=== PATIENT | female | born 1940 | race Caucasian/White ===

== ENCOUNTER 2016-11-16 09:15 | Inpatient (IN) | payer OTHER ==
[2016-11-08 14:01] VITALS: BMI 25.0
--- NOTE | 2016-11-08 14:37 | PAT Medication Instructions ---
Service Date Nov 08, 2016. Current Home Medication List Amoxicillin (Amoxil), 4 TAB PO BEFORE DENTAL Aspirin Effervescent ([place]), 1 TAB PO UD PRN for COLD SYMPTOMS Celecoxib (Celebrex), 1 CAP PO BID Chlorhexidine Gluconate (Peridex Oral Soln), 5 ML MT BID Ezetimibe (Zetia), 10 MG PO QAM Levothyroxine Sodium (Levothyroxine Sodium), 1 TAB PO QAM Losartan Potassium (Cozaar), 100 MG PO QAM Oxycodone Ir (Roxicodone Ir), 1 TAB PO BID Spironolactone (Aldactone), 3 TAB PO TID Valacyclovir (Valtrex), 1 TAB PO BID PRN for COLD SORE Medication Instructions For Your Scheduled Surgery Amoxicillin (Amoxil), 4 TAB PO BEFORE DENTAL (continue as directed) Celecoxib (Celebrex), 1 CAP PO BID (check with surgeon for instructions) - Hold the following medications the morning of surgery: Valacyclovir (Valtrex), 1 TAB PO BID PRN for COLD SORE Spironolactone (Aldactone), 3 TAB PO TID Losartan Potassium (Cozaar), 100 MG PO QAM Chlorhexidine Gluconate (Peridex Oral Soln), 5 ML MT BID. Aspirin Effervescent ([place]), 1 TAB PO UD PRN for COLD SYMPTOMS - Take the following medications the morning of surgery with a sip of water: Oxycodone Ir (Roxicodone Ir), 1 TAB PO BID Levothyroxine Sodium (Levothyroxine Sodium), 1 TAB PO QAM Ezetimibe (Zetia), 10 MG PO QAM - Take the following medications as scheduled the night before surgery: Valacyclovir (Valtrex), 1 TAB PO BID PRN for COLD SORE (if needed) Oxycodone Ir (Roxicodone Ir), 1 TAB PO BID Spironolactone (Aldactone), 3 TAB PO TID Chlorhexidine Gluconate (Peridex Oral Soln), 5 ML MT BID Aspirin Effervescent ([place]a-[place]), 1 TAB PO UD PRN for COLD SYMPTOMS (if needed) If you have any questions please call us at [phone] or [phone] or [phone]
--- NOTE | 2016-11-08 15:44 | DIAGNOSTIC IMAGING REPORT ---
CERVICAL SPINE 2 OR 3 VIEWS CLINICAL HISTORY: 76 years-old Female presenting with PREOP, RHEUMATOID ARTHRITIS. TECHNIQUE: Lateral radiographs of the cervical spine were obtained in neutral, flexion, extension positioning. COMPARISON: None. FINDINGS: The C7 vertebral body is visible in all positions. Neutral positioning demonstrates degenerative changes of the mid cervical spine. Mild vertebral body height loss of C5-6 suggested. 3 mm of grade 1 anterolisthesis of C6 on C7. Facet arthropathy noted. The atlantoaxial articulation is not well-defined likely due to arthritic changes. No increase in the predental interval on flexion or extension. No subluxation on extension or flexion views. No prevertebral soft tissue swelling. IMPRESSION: 1. Arthritic changes suggested at the atlantoaxial articulation, which can be seen in the setting of rheumatoid arthritis among other etiologies including calcium prior phosphate deposition disease. No atlantoaxial or suboccipital subluxation. 2. Multilevel degenerative changes. Electronically signed by: Germán Mendez M.D. 11/08/2016 3:42 PM Dictated Date/Time: 11/08/2016 3:36 PM
[2016-11-08 16:20] LABS: BASO % 0.6 %; BASO ABS # 0.05 K/uL (0-0.2); COMPLETE YES; EOS % 2.9 %; HEMATOCRIT 38.1 % (37-47); IG% 0.2 %; LYMPH % 17.3 %; LYMPH ABS # 1.52 K/uL (1.2-3.4); MEAN CELL VOLUME 90.5 fL (80-100); MEAN CORPUSCULAR HEMOGLOBIN 30.4 pg (25-34); MEAN CORPUSCULAR HGB CONC 33.6 g/dl (32-36); MEAN PLATELET VOLUME 10.7 fL (7.4-10.4); MONO % 8.4 %; NEUT % 70.6 %; PLATELET COUNT 251 K/uL (130-400); RED BLOOD COUNT 4.21 M/uL (4.2-5.4); WHITE BLOOD COUNT 8.77 K/uL (4.8-10.8)
[2016-11-08 16:20] LABS: URINE APPEARANCE CLEAR (CLEAR); URINE BILIRUBIN NEG (NEG); URINE COLOR YELLOW; URINE EPITHELIAL CELL AUTO 0-5 /lpf (0-5); URINE NITRITE POS (NEG); URINE SPECIFIC GRAVITY 1.007 (1.000-1.030); UROBILINOGEN NEG (NEG); ZZUR CULT IF INDIC CLEAN CATCH YES
[2016-11-08 16:21] LABS: MANUAL MICROSCOPIC REQUIRED? NO; REVIEW REQ? NO
[2016-11-08 16:31] LABS: INR 0.9 (0.9-1.1); PROTHROMBIN TIME (PATIENT) 10.1 SECONDS (9.0-12.0)
[2016-11-09 06:51] LABS: ESTIMATED AVERAGE GLUCOSE 114 mg/dl; HA1C FLAG Normal (Normal)
--- NOTE | 2016-11-15 14:22 | History and Physical ---
History & Physical Date Nov 15, 2016. Chief Complaint Right hip pain History of Present Illness The patient is a 76 year old female with complaints of severe right hip pain and disability. She had previous hip fracture and gamma nailing by outside physician. Xrays shows disintegration of the femoral head, severe shortening of the hip joint, and lag screw penetration into the acetabulum Additional History Hepatic Disease: No Endocrine Disorder: Yes (Hypothyroidism) Kidney Disease: No Hypertension: Yes Heart Disease: No Bleeding Tendencies: No Infectious Diseases: No Other: Hypercholesterolemia Allergies Coded Allergies: Clarithromycin (Verified Allergy, Unknown, pt unsure, 11/08/16) Hydroxychloroquine (Verified Allergy, Unknown, ELECTROLYTE IMBALANCE, 11/08) Latex1 -Allergic Contact Dermititis (Verified Allergy, Unknown, SKIN REDNESS, 11/08/16) Atorvastatin (Verified Adverse Reaction, Unknown, MUSCLE SPASMS, 11/08/16) Clindamycin (Verified Adverse Reaction, Unknown, diarrhea, 11/08/16) Levofloxacin (Verified Adverse Reaction, Unknown, nausea, 11/08/16) Methotrexate (Verified Adverse Reaction, Unknown, ACUTE RENAL FAILURE, 04/15) Naproxen (Verified Adverse Reaction, Unknown, N/V, 11/08/16) Home Medications Scheduled Amoxicillin (Amoxil), 4 TAB PO BEFORE DENTAL Cefuroxime Axetil (Ceftin), 500 MG PO BID Celecoxib (Celebrex), 1 CAP PO BID Chlorhexidine Gluconate (Peridex Oral Soln), 5 ML MT BID Ezetimibe (Zetia), 10 MG PO QAM Levothyroxine Sodium (Levothyroxine Sodium), 1 TAB PO QAM Losartan Potassium (Cozaar), 100 MG PO QAM Oxycodone Ir (Roxicodone Ir), 1 TAB PO BID Scheduled PRN Aspirin Effervescent (Siena-[place]), 1 TAB PO UD PRN for COLD SYMPTOMS Valacyclovir (Valtrex), 1 TAB PO BID PRN for COLD SORE Physical Examination Skin: warm/dry Eyes: normal inspection, EOMI ENT: normal ENT inspection Head: normocephalic Neck: supple, no adenopathy Respiratory/Chest: lungs clear, normal breath sounds Cardiovascular: regular rate, rhythm Abdomen / GI: normal bowel sounds Back: normal inspection Extremities: + pertinent finding (Right hip with decreased active and passive ROM with pain. Right lower extremity notably shortened) Addiitonal Comments: Xrays: right hip gamma nail in place with disintegration of femoral head, lag screw erosion into acetabulum, and severe hip shortening Diagnosis Painful retained hardware right hip Plan of Treatment Removal gamma nail, conversion to right total hip arthroplasty
[2016-11-16] VITALS (8 sets, daily range): BP systolic 101–134; BP diastolic 63–82; PULSE 66–73; TEMP 36.3–36.9; O2SAT 97–100; Ht 157.5 cm; Wt 138.0 kg
[~2016-11-16] VITALS: Ht 157.5 cm; Wt 138.0 kg
[2016-11-16] MEDS: TRANEXAMIC ACID INJ 1,000 MG in SODIUM CHLORIDE 0.9% 100ML 100 ML IV SCH ×2 (06:30→12:15)
[~2016-11-16 09:15] MED LIST: ACETAMINOPHEN 500 MG TAB PO SCH; AMOX500C3 PO; ASPITAB71 PO; ATROPINE SULFATE 0.1 MG/ML 5ML SYR IV PRN; BUPIVACAINE 0.5 % 5 MG/1 ML PF 10ML VIAL ONE; CEFAZOLIN 2000 MG/60 ML D5W 60 ML IV SCH; CEFU500T16 PO; CLB100 PO; CeleBREX 200 MG CAP PO SCH; DEXAMETHASONE 4 MG TAB PO SCH; EZET10TA63 PO; EpHEDrine SULFATE INJ 50 MG/ML AMP IV PRN; FAMOTIDINE 20 MG TAB PO SCH; FENTANYL CITRATE INJ 50 MCG/1 ML 2 ML VIAL IV PRN; GABAPENTIN 300 MG CAP PO SCH; HYDROmorphone INJ 1 MG/ML SYR IV PRN; LACTATED RINGER'S 1000ML 1,000 ML IV SCH; LEVO100T7 PO; LOSA100T65 PO; METOCLOPRAMIDE HCL 10 MG TAB PO SCH; ONDANSETRON INJ 2 MG/ML 2 ML VIAL IV PRN; OXYC1TAB3 PO; PRDXLUD MT; ROPIVACAINE 5MG/ML 30 ML 150 MG, BUPIVACAINE/EPINEPHR 0.5% MPF 30 ML, KETOROLAC TROMETH... INFIL SCH; VALA500T60 PO
[2016-11-16] MEDS ORDERED: CHLO1TAB47 (09:49)
[2016-11-16] MEDS ORDERED: MIDAZOLAM HCL 1 MG/ML 2ML VIAL ONE (10:52)
--- NOTE | 2016-11-16 11:24 | History & Physical Bridge Note ---
H&P Re-Evaluation Bridge Note: I have examined the patient, reviewed the History & Physical and in the interval since the performance of the History & Physical I have noted the following changes of clinical significance: No changes noted
[2016-11-16] MEDS ORDERED: PROPOFOL IV EMULSION 10 MG/ML 20 ML VIAL IV ONE (11:56)
[2016-11-16] MEDS ORDERED: ORTHO JOINT ANESTHETIC ONE (12:01)
[2016-11-16] MEDS ORDERED: BACITRACIN 50000 UNIT VIAL ONE (12:01)
[2016-11-16] MEDS ORDERED: POVIDONE-IODINE OP SOLN 30 ML BTL ONE (12:01)
[2016-11-16] MEDS ORDERED: PHENYLEPHRINE HCL INJ 10 MG/ML VIAL ONE (13:04)
[2016-11-16] MEDS ORDERED: EpHEDrine SULFATE 50MG/5ML SYR ONE (13:29)
--- NOTE | 2016-11-16 14:31 | [facility] Operative Report ---
Operative Report Operative Date Nov 16, 2016. Pre-Operative Diagnosis Painful retained hardware right hip Post-Operative Diagnosis Painful retained hardware right hip Procedure(s) Performed Removal gamma nail, conversion to right total hip arthroplasty Surgeon Dr. Hudson Rapier Insertion Loom Fixer Surgeon(s) Ruth Espinoza PA-C Estimated Blood Loss 350 cc Findings Destroyed femoral head Specimens A: Explanted hardware, right troch nail B: Right femoral head Description of Procedure Patient was placed in left lateral humerus position right colonic buttons and has made substantial crepitus at allergies hemostasis first was turned to the tip of the greater trochanter where bony dissection was carried out until the nail was exposed and the interlocking screw was backed out a few turns. Attention was then turned to the hip screw this was removed with relative ease. Next turned again to the tip of the trochanter where the nail was exposed the extraction tool was inserted and the nail was extracted. Portals short external rotators were divided from the posterior femur using electrocautery the femoral head remnants was exposed and the femoral neck was osteotomized to appropriate level. Box osteotome was used to gain access to the femoral canal and a canal finder was utilized to ensure proper stent placement sequential raspings were carried up to a size 2 gave good fit and fill the longest neck length with the extended neck still left a fairly shortened. The hip was a check x-ray was taken and the decision was made to go up a morcellized in terms of stumbling additional bone preventing adequate internal rotation was removed with a rongeur the femoral stem was inserted this time somewhat proud compared to the smaller stem a reduction was again carried out and the decision made to go with a 127 Problem a +0.5 mm stem. Prior to prep stem preparation the acetabulum exposed and was reamed to size 52 this gave full seating of the acetabular component elevated posterior wall liner was placed the trials were all removed final components were impacted in position and the hip was located joint mix was injected throughout the wound soak was applied and CLOSED over Hemovac drain continues infectious occlusion of 1 Vicryl subcutaneous tissues tissue was closed using 0 Dexon Dilan rose sterile Adaptic 4 x 4's and a subcuticular 90 Aquasol dressing was applied. Patient tolerated the procedure well. I attest to the content of the Intraoperative Record and any orders documented therein. Any exceptions are noted below.
--- NOTE | 2016-11-16 14:31 | DIAGNOSTIC IMAGING REPORT ---
RIGHT HIP OR FILMS CLINICAL HISTORY: 76 years-old Female presenting with HARDWARE Right. TECHNIQUE: 1 fluoroscopic spot image(s) obtained as part of intraoperative procedure. COMPARISON: None. FINDINGS/IMPRESSION: Total right hip arthroplasty noted. Grossly anatomic alignment. Please see surgical report for further details. Fluoroscopy dosage (mGy): Not available. Fluoroscopy time: 3 seconds. Number of fluoroscopic spot images: 1. Electronically signed by: Germán Mendez M.D. 11/16/2016 2:30 PM Dictated Date/Time: 11/16/2016 2:29 PM
[2016-11-16] MEDS ORDERED: ALUMINUM/MAGNESIUM/SIMETH (MAALOX MAX) 30 ML UDC PO PRN (15:00)
[2016-11-16] MEDS ORDERED: MAGNESIUM HYDROXIDE SUSP 30 ML UDC PO PRN (15:00)
[2016-11-16] MEDS ORDERED: MoRPHine SULFATE 2 MG/ML CARP IV PRN (15:00)
[2016-11-16] MEDS ORDERED: ONDANSETRON INJ 2 MG/ML 2 ML VIAL IV PRN (15:00)
[2016-11-16] MEDS ORDERED: ZOLPIDEM TARTRATE 5 MG TAB PO PRN (15:00)
[2016-11-16] MEDS ORDERED: METOCLOPRAMIDE HCL INJ 5 MG/ML 2 ML VIAL IV PRN (15:00)
--- NOTE | 2016-11-16 15:24 | DIAGNOSTIC IMAGING REPORT ---
RIGHT PELVIS/UNILATERAL HIP 1 VIEW CLINICAL HISTORY: IN PACU - A/P PELVIS and LATERAL HIP INCLUDING ALL OF IMPLANT Right COMPARISON: None. DISCUSSION: Anatomic alignment status post total right hip replacement. Lucency of uncertain significance lateral aspect proximal femoral shaft. No evidence for acetabular protrusion. Expected soft tissue postoperative change IMPRESSION: Anatomic alignment status post total right hip replacement. Small cortical lucency lateral aspect proximal femoral shaft of uncertain significance The above report was generated using voice recognition software. It may contain grammatical, syntax or spelling errors. Electronically signed by: Maurilio Cameron M.D. 11/16/2016 3:23 PM Dictated Date/Time: 11/16/2016 3:22 PM
--- NOTE | 2016-11-16 15:25 | Anesthesiology Progress Note ---
Anesthesia Post Op Note Date & Time Nov 16, 2016 at 15:24 Vital Signs Pain Intensity: 0 Vital Signs Past 12 Hours Date Time Temp Pulse Resp B/P (MAP) Pulse Ox O2 Delivery O2 Flow Rate FiO2 11/16/16 15:20 68 18 105/67 100 Nasal Cannula 3 11/16/16 15:10 67 18 104/64 100 Nasal Cannula 3 11/16/16 15:00 72 18 101/64 100 Nasal Cannula 3 11/16/16 14:54 36.7 74 18 107/64 99 Nasal Cannula 3 11/16/16 10:21 97 Room Air 11/16/16 10:14 36.9 73 18 134/82 Notes Mental Status: alert / awake / arousable, participated in evaluation Pt Amnestic to Procedure: Yes Nausea / Vomiting: adequately controlled Pain: adequately controlled Airway Patency, RR, SpO2: stable & adequate BP & HR: stable & adequate Hydration State: stable & adequate Anesthetic Complications: no major complications apparent
[2016-11-16] MEDS: OXYCODONE HCL IR 5 MG TAB (IMMEDIATE RELEASE) PO PRN (16:56)
[2016-11-16] MEDS ORDERED: MoRPHine SULFATE 4 MG/ML 1 ML CARP\\VIAL IV PRN (17:30)
[2016-11-16] MEDS ORDERED: MoRPHine SULFATE 10 MG/ML CARP/VIAL IV PRN (17:30)
[2016-11-16] MEDS: FERROUS GLUCONATE 324 MG TAB PO SCH (17:45)
[2016-11-16] MEDS: D5W AND 1/2NSS + 20MEQ KCL 1,000 ML IV SCH (17:53)
[2016-11-16] MEDS: KETOROLAC TROMETHAMINE 15 MG/ML VIAL IV. SCH ×2 (18:55→23:36)
[2016-11-16] MEDS: ASPIRIN 81 MG ECTAB PO SCH (20:45)
[2016-11-16] MEDS: DOCUSATE SODIUM 100 MG CAP PO SCH (20:45)
[2016-11-16] MEDS: CEFAZOLIN IV 2,000 MG in DEXTROSE 5% 50ML 50 ML IV SCH (20:45)
[2016-11-16] MEDS: NITROFURANTOIN MONOHYDRATE 100 MG CAP PO SCH (20:46)
[2016-11-16] MEDS: PREGABALIN 75 MG CAP PO SCH (20:55)
[2016-11-16] MEDS: ACETAMINOPHEN 500 MG TAB PO SCH (21:49)
[2016-11-17 03:30] VITALS: BP 108/84; PULSE 59; TEMP 36.5; O2SAT 97
[2016-11-17] MEDS: CEFAZOLIN IV 2,000 MG in DEXTROSE 5% 50ML 50 ML IV SCH (04:07)
[2016-11-17] MEDS: D5W AND 1/2NSS + 20MEQ KCL 1,000 ML IV SCH ×2 (04:07→13:30)
[2016-11-17] MEDS: ACETAMINOPHEN 500 MG TAB PO SCH ×3 (06:00→21:49)
[2016-11-17] MEDS: LEVOTHYROXINE 100 MCG TAB PO SCH (06:00)
[2016-11-17] MEDS: KETOROLAC TROMETHAMINE 15 MG/ML VIAL IV. SCH ×2 (06:01→12:00)
[2016-11-17 06:07] LABS: COMPLETE YES; HEMATOCRIT 26.9 % (37-47); IG% 0.2 %; LYMPH % 6.1 %; MEAN CELL VOLUME 89.1 fL (80-100); MEAN CORPUSCULAR HEMOGLOBIN 29.8 pg (25-34); MEAN CORPUSCULAR HGB CONC 33.5 g/dl (32-36); MEAN PLATELET VOLUME 10.4 fL (7.4-10.4); MONO % 7.4 %; NEUT % 86.3 %; PLATELET COUNT 185 K/uL (130-400); RED BLOOD COUNT 3.02 M/uL (4.2-5.4); WHITE BLOOD COUNT 16.51 K/uL (4.8-10.8)
[2016-11-17 06:34] LABS: BUN/CREATININE RATIO 20.8 (10-20); CALCIUM 8.3 mg/dl (8.5-10.1); CREATININE 1.3 mg/dl (0.60-1.20); POTASSIUM 4.7 mmol/L (3.5-5.1)
[2016-11-17 07:26] VITALS: BP 114/68; PULSE 71; TEMP 36.8; O2SAT 96
[2016-11-17] MEDS ORDERED: DEXAMETHASONE INJ 10 MG in SYRINGE 0 ML IV SCH (07:30)
--- NOTE | 2016-11-17 07:54 | Orthopedic Progress Note ---
Orthopedic Progress Note Date of Service Nov 17, 2016. Subjective Post OP Day: 1 Reports: feeling well Objective N/V intact, dressing C/D/I (Hemovac d/c'd ), toes mobile Date Time Temp Pulse Resp B/P (MAP) Pulse Ox O2 Delivery O2 Flow Rate FiO2 11/17/16 03:30 36.5 59 16 108/84 (92) 97 Room Air 11/16/16 23:45 Room Air 11/16/16 23:24 36.5 69 12 101/63 (76) 98 Room Air 11/16/16 19:10 36.4 66 18 105/71 (82) 97 Room Air 11/16/16 18:53 36.5 70 20 122/72 (89) 97 Room Air 11/16/16 17:10 36.3 68 16 112/68 (83) 100 Nasal Cannula 2.0 11/16/16 16:40 36.4 66 16 108/67 (81) 100 Nasal Cannula 2.0 11/16/16 16:10 100 Nasal Cannula 2.0 11/16/16 16:10 Nasal Cannula 2.0 11/16/16 16:10 36.5 67 16 112/64 (80) 100 Nasal Cannula 2.0 11/16/16 16:00 36.4 74 16 101/60 100 Nasal Cannula 2 11/16/16 15:45 69 18 110/63 100 Nasal Cannula 3 11/16/16 15:35 36.4 68 16 96/63 (78) 100 Nasal Cannula 3 11/16/16 15:20 68 18 105/67 100 Nasal Cannula 3 11/16/16 15:10 67 18 104/64 100 Nasal Cannula 3 11/16/16 15:00 72 18 101/64 100 Nasal Cannula 3 11/16/16 14:54 36.7 74 18 107/64 99 Nasal Cannula 3 11/16/16 10:21 97 Room Air 11/16/16 10:14 36.9 73 18 134/82 Laboratory Results 24 Hours: Test 11/17/16 05:46 White Blood Count 16.51 K/uL Red Blood Count 3.02 M/uL Hemoglobin 9.0 g/dL Hematocrit 26.9 % Mean Corpuscular Volume 89.1 fL Mean Corpuscular Hemoglobin 29.8 pg Mean Corpuscular Hemoglobin Concent 33.5 g/dl Platelet Count 185 K/uL Mean Platelet Volume 10.4 fL Neutrophils (%) (Auto) 86.3 % Lymphocytes (%) (Auto) 6.1 % Monocytes (%) (Auto) 7.4 % Eosinophils (%) (Auto) 0.0 % Basophils (%) (Auto) 0.0 % Neutrophils # (Auto) 14.26 K/uL Lymphocytes # (Auto) 1.00 K/uL Monocytes # (Auto) 1.22 K/uL Eosinophils # (Auto) 0.00 K/uL Basophils # (Auto) 0.00 K/uL Assessment & Plan Assessment: 76 yo female stable POD #1 s/p right hip hardware removal, conversion to MICHELLE Plan: 1. Med management 2. DVT prophylaxis- ASA, SCDs 3. PT/OT- TTWB 4. D/C planning- home w/ HH
--- NOTE | 2016-11-17 07:58 | Discharge Instructions ---
Discharge Instructions Date of Service Nov 17, 2016. Admission Reason for Admission: Right Hip Mechanical Hardware Failure Discharge Discharge Diagnosis / Problem: Painful retained hardware right hip Discharge Goals Goal(s): Decrease discomfort, Improve function Activity Recommendations Activity Limitations: as noted below Weightbearing Status: Right toe touch . Instructions / Follow-Up Instructions / Follow-Up ACTIVITY RECOMMENDATIONS: SELF CARE INSTRUCTIONS AFTER TOTAL HIP REPLACEMENT Until the incision and soft tissues around your hip have healed, there is a possibility that the hip prosthesis could dislocate. A. Observe the following precautions to prevent dislocation: 1. Don't bend your hip greater than 90 degrees. 2. Avoid crossing your legs or ankles while standing or lying. 3. Sit with your feet placed 6 inches apart. 4. When sitting, keep your knees below your hips. Sit on a firm surface, avoid deep, soft chairs and couches. Use an elevated toilet seat in the bathroom. 5. Don't bend over at the waist. Use a long handled shoehorn and a sock aid to help you put on your shoes and socks. A forest technology professor can help you potato picker objects that are too high or too low to reach. 6. Keep car riding to a minimum for at least one month after surgery. B. Your balance may be shaky for a while. Use crutches or a walker until directed by your doctor. C. Use hand rails when walking on stairs. D. Wear low heeled shoes with non-slip soles. E. Be sure that your floors are free of things that could trip you - throw rugs , electrical cords, small objects. Avoid wet and waxed floors, especially with crutches and canes. F. Try to walk several times a day with rest periods between. G. Continue with all the exercises taught to you in the hospital. Again, make walking a part of your daily routine. SPECIAL CARE INSTRUCTIONS: VERY IMPORTANT TO READ AND REVIEW A. You may still be at risk for phlebitis and blood clots. 1. Wear surgical stockings (JACQUES hose) for 2 weeks after surgery to improve circulation and reduce swelling. 2. Take Aspirin 81mg twice daily for 4 weeks or as directed by your doctor. This is your blood thinner. 3. High risk patients may be prescribed a stronger blood thinner if necessary. 4. If you are on Coumadin normally, your family doctor/dental ceramist assistant should monitor your blood work. Expect a phone call the day of or the day after bloodwork is drawn to adjust your dosage. B. You must take antibiotics before having dental work, bladder, bowel and other surgery. Your doctor will provide you with a permanent card to carry describing precautions. C. Call [facility] if you have a fever, redness or swelling around the incision, cloudy drainage from incision, or sudden increase in pain in your hip, not relieved by your regular pain medication. D. Please call the office at if you have any concerns or questions about your operation or recovery. * YOU MAY SHOWER, NO TUB BATHS UNTIL CLEARED BY YOUR DOCTOR. * WEAR JACQUES HOSE 20 HOURS PER DAY FOR 2 WEEKS. * YOU SHOULD USE A WALKER OR CRUTCHES FOR 6 WEEKS. THIS WILL HELP PREVENT STRAIN ON YOUR HIP MUSCLE AND ALLOW IT TO HEAL PROPERLY. * MOST PATIENTS WILL HAVE HOME NURSING FOR THERAPY. IF YOU DECIDE TO DO OUTPATIENT PHYSICAL THERAPY, PLEASE SCHEDULE THIS 3 TIMES PER WEEK. Silverlon- This is a large adhesive bandage that contains silver ions. This helps your incision heal by fighting off bacteria and protecting it from the outside environment. You are permitted to shower with this dressing. This will remain on your incision for 7 days and then should be removed. Some visible blood or drainage through the dressing window is normal. If there is significant drainage or leaking noted before the 7 days notify your doctor's office immediately. Once removed, keep incision clean and dry. If there is any drainage or redness noted, please call your surgeon. . FOLLOW UP VISIT: If appointment is not already scheduled: Please call [facility] to make a follow-up appointment for 2 weeks after your surgery at . Current Hospital Diet Patient's current hospital diet: Regular Diet Discharge Diet Recommended Diet: Regular Diet Procedures Procedures Performed: Removal gamma nail, conversion to right total hip arthroplasty Pending Studies Studies pending at discharge: no Laboratory Results Hemoglobin A1c Test 11/08/16 15:03 Range/Units Estimated Average Glucose 114 mg/dl Hemoglobin A1c 5.6 4.5-5.6 % Medical Emergencies . Who to Call and When: Medical Emergencies: If at any time you feel your situation is an emergency, please call 911 immediately. . Non-Emergent Contact Non-Emergency issues call your: Surgeon Call Non-Emergent contact if: temperature is above 101.5, your pain is not controlled, wound has increased drainage, wound has increased redness . "Provider Documentation" section prepared by Umang Espinoza PA-C. . VTE Core Measure Inpt VTE Proph given/why not?: Other Anticoagulation (ASA 81mg bid), T.E.D. Stockings, SCD's [place] Drug Monitoring Program Search Results: patient reviewed within database, no issues identified
[2016-11-17] MEDS: OXYCODONE HCL IR 5 MG TAB (IMMEDIATE RELEASE) PO PRN ×2 (08:03→19:06)
--- NOTE | 2016-11-17 08:11 | Anesthesiology Progress Note ---
Anesthesia Post Op Note Date & Time Nov 17, 2016 at 08:11 Vital Signs Pain Intensity: 6.0 Vital Signs Past 12 Hours Date Time Temp Pulse Resp B/P (MAP) Pulse Ox O2 Delivery O2 Flow Rate FiO2 11/17/16 07:26 36.8 71 16 114/68 (83) 96 Room Air 11/17/16 03:30 36.5 59 16 108/84 (92) 97 Room Air 11/16/16 23:45 Room Air 11/16/16 23:24 36.5 69 12 101/63 (76) 98 Room Air Notes Mental Status: alert / awake / arousable, participated in evaluation Pt Amnestic to Procedure: Yes Nausea / Vomiting: adequately controlled Pain: adequately controlled Airway Patency, RR, SpO2: stable & adequate BP & HR: stable & adequate Hydration State: stable & adequate Neuraxial Anesthesia: sensory block resolved Anesthetic Complications: no major complications apparent
[2016-11-17] MEDS: FERROUS GLUCONATE 324 MG TAB PO SCH ×3 (09:13→17:53)
[2016-11-17] MEDS: ASPIRIN 81 MG ECTAB PO SCH ×2 (09:14→21:49)
[2016-11-17] MEDS: MULTIVITAMIN TAB PO SCH (09:14)
[2016-11-17] MEDS: DOCUSATE SODIUM 100 MG CAP PO SCH ×2 (09:14→21:49)
[2016-11-17] MEDS: PANTOprazole SOD 40 MG TAB PO SCH (09:14)
[2016-11-17] MEDS: NITROFURANTOIN MONOHYDRATE 100 MG CAP PO SCH ×2 (09:14→21:49)
[2016-11-17] MEDS: EZETIMIBE 10MG TAB PO SCH (09:15)
[2016-11-17] MEDS: LOSARTAN POTASSIUM 50 MG TAB PO SCH (09:15)
[2016-11-17] MEDS: PREGABALIN 75 MG CAP PO SCH ×2 (09:17→21:48)
--- NOTE | 2016-11-17 10:47 | Clinical Documentation Query ---
VON Wilson : CLINICAL DOCUMENTATION QUERIES QUERY 1 OF 2 Patient is a 76 year old female who underwent gamma nail removal, conversion to right total hip arthroplasty. EBL for the procedure was 350 ml's with total losses to date totaling 530 ml's. Preoperative hemoglobin and hematocrit were 12.8 g/dl adn 38.1%. POD #1, repeat values are 9.0 g/dl and 26.9%. Additionally, net I/O noted to be positive for 2,500 ml's. As appropriate, consider clarification as suggested below. Thank you. In your clinical opinion is this patient being managed for: ( ) Acute blood loss and hemodilutional anemia ( ) Other explanation of clinical findings (Please Explain) ( ) Unable to determine (Please Define) ( ) Need to Discuss ( ) Not Agree The medical record reflects the following clinical findings, treatment, and risk factors. Clinical Indicators: As above Treatment: Serial hematology, I/O Risk Factors: Acute perioperative blood losses, IVF administration QUERY 2 OF 2 BUN, creatinine, and estimated GFR of 27 mg/dl, 1.30 mg/dl, and 40 ml/min. Please clarify as clinically appropriate. In your clinical opinion is this patient being managed for: ( ) Chronic kidney disease, stage 3 ( ) Other explanation of clinical findings (Please Explain) ( ) Unable to determine (Please Define) ( ) Need to Discuss ( ) Not Agree The medical record reflects the following clinical findings, treatment, and risk factors. Clinical Indicators: As above, and no documentation suggestive of MARISSA Treatment: IVF, chemistries Risk Factors: Age, hypertension Please clarify and document your clinical opinion in the progress notes and discharge summary. Terms such as "probable", "suspected", "likely", "questionable", "possible", or "still to be ruled out" are acceptable. IF IN AGREEMENT, YOU MUST DOCUMENT ABOVE DIAGNOSTIC STATEMENT IN DAILY PROGRESS NOTES AND DISCHARGE SUMMARY. This document is not part of the patient's record. Thank You, Terrence Moy, RN [phone]
[2016-11-17 11:01] VITALS: BP 131/72; PULSE 70; O2SAT 97
[2016-11-17 12:00] VITALS: BP 128/74; PULSE 64; TEMP 36.4; O2SAT 99
[2016-11-17 15:05] VITALS: BP 120/69; PULSE 69; TEMP 36.8; O2SAT 98
[2016-11-17] MEDS ORDERED: NURSING VERBAL MED ORDER ONE (15:15)
[2016-11-17] MEDS: CeleBREX 200 MG CAP PO SCH (21:48)
[2016-11-17 23:05] VITALS: BP 127/69; PULSE 62; TEMP 36.5; O2SAT 96
[2016-11-18] MEDS: LEVOTHYROXINE 100 MCG TAB PO SCH (05:38)
[2016-11-18] MEDS: ACETAMINOPHEN 500 MG TAB PO SCH (05:39)
[2016-11-18] MEDS: OXYCODONE HCL IR 5 MG TAB (IMMEDIATE RELEASE) PO PRN ×2 (05:41→11:48)
[2016-11-18 07:45] VITALS: BP 111/56; PULSE 67; TEMP 36.6; O2SAT 99
[2016-11-18] MEDS: EZETIMIBE 10MG TAB PO SCH (08:15)
[2016-11-18] MEDS: DOCUSATE SODIUM 100 MG CAP PO SCH (08:15)
[2016-11-18] MEDS: ASPIRIN 81 MG ECTAB PO SCH (08:15)
[2016-11-18] MEDS: FERROUS GLUCONATE 324 MG TAB PO SCH ×2 (08:15→11:47)
[2016-11-18] MEDS: PANTOprazole SOD 40 MG TAB PO SCH (08:16)
[2016-11-18] MEDS: MULTIVITAMIN TAB PO SCH (08:16)
[2016-11-18] MEDS: LOSARTAN POTASSIUM 50 MG TAB PO SCH (08:16)
[2016-11-18] MEDS: CeleBREX 200 MG CAP PO SCH (08:16)
[2016-11-18] MEDS: NITROFURANTOIN MONOHYDRATE 100 MG CAP PO SCH (08:16)
[2016-11-18] MEDS: PREGABALIN 75 MG CAP PO SCH (08:18)
--- NOTE | 2016-11-18 10:05 | Orthopedic Progress Note ---
Orthopedic Progress Note Date of Service Nov 18, 2016. Subjective Post OP Day: 2 Reports: feeling well, pain controlled w PO medications, Denies: chest pain, SOB , nausea / vomiting, light headedness, calf pain Objective calves soft nontender, N/V intact, hip located, capillary refill less than 2 sec., dressing C/D/I (silverlon), A&O x3, toes mobile Date Time Temp Pulse Resp B/P (MAP) Pulse Ox O2 Delivery O2 Flow Rate FiO2 11/18/16 07:50 Room Air 11/18/16 07:45 36.6 67 16 111/56 (74) 99 Room Air 11/18/16 00:15 Room Air 11/17/16 23:05 36.5 62 14 127/69 (88) 96 Room Air 11/17/16 16:30 Room Air 11/17/16 15:05 36.8 69 16 120/69 (86) 98 Room Air 11/17/16 12:00 36.4 64 16 128/74 (92) 99 11/17/16 11:01 70 97 11/17/16 10:48 Room Air Assessment & Plan Assessment: 76 yo female stable POD #2 s/p right hip hardware removal, conversion to MICHELLE Plan: 1. Med management 2. DVT prophylaxis- ASA, SCDs 3. PT/OT- TTWB 4. D/C planning- home w/ HH today Inhouse Planning Pain Management: Oxycontin, Oxy IR DVT Prophylaxis: TEDs, SCDs, ASA Discharge Planning Discharge Planning: home with home health Pain Management: Oxycontin, Oxy IR DVT Prophylaxis: TEDs, ASA Therapy: Physical Therapy
[2016-11-18] MEDS ORDERED: ACET-24 PO (10:09)
[2016-11-18] MEDS ORDERED: ASPEC81 PO (10:09)
[2016-11-18] MEDS ORDERED: CLB200 PO (10:09)
[2016-11-18] MEDS ORDERED: RXC5 PO (10:09)
[2016-11-18] MEDS ORDERED: FRRG PO (10:09)
[2016-11-18] MEDS ORDERED: LYR75 PO (10:10)
[2016-11-18] MEDS ORDERED: ONDA8TAB6 PO (10:10)
[2016-11-18] MEDS ORDERED: MULT-890 PO (10:10)
[2016-11-18 10:45] VITALS: BP 111/56; PULSE 67; TEMP 36.6; O2SAT 99
--- NOTE | 2016-11-22 09:07 | DISCHARGE SUMMARY ---
CHIEF COMPLAINT: Failed hardware, right hip. Please see complete history and physical examination. HOSPITAL COURSE: The patient underwent hardware removal and conversion to total hip on her right side without complication. She tolerated the procedure well and was discharged to recovery room in stable condition. Her postoperative course was relatively uneventful. Her postoperative pain was reasonably well controlled with a combination of spinal anesthesia, intraoperative joint injection, IV, and oral pain medications. She was started on aspirin for DVT prophylaxis. She also utilized JACQUES stockings and SCDs for additional prophylaxis. Her H&H was stable and did not require transfusion. Her surgical drain was discontinued by postoperative day 1 and her surgical dressing will remain in place for approximately 7 days postoperative. She tolerated postoperative physical therapy reasonably well, where she was toe touch weight bearing and transferring appropriately. She was observing all total hip precautions. She was discharged home on postoperative day 2. She will continue her physical therapy at home. She will continue her aspirin for DVT prophylaxis and follow up in our office in approximately 10-14 days for initial postop evaluation.
--- NOTE | 2017-01-05 14:19 | OPERATIVE REPORT ---
DATE OF OPERATION: 11/16/2016 ADDENDUM - Please see original PDoc report for details. Umang Espinoza was optometry assistant in the case. He was present for all portions of the case including positioning, prepping, draping, surgical assistance, wound closure and dressing application. I attest to the content of the Intraoperative Record and any orders documented therein. Any exception s are noted below.
== END 2016-11-18 13:25 | disposition home health service (06) | DRG 470 ==
LOC: C.ACU 09:15 → C.3E 15:02 → ENRESERV 15:50
PROC: 0SR90JZ Replacement of Right Hip Joint with Synthetic Substitute, Open Approach (ICD-10-PCS; principal; 2016-11-16 11:45)
PROC: 0QP204Z Removal of Internal Fixation Device from Right Pelvic Bone, Open Approach (ICD-10-PCS; principal; 2016-11-16 11:45)
DX: T84.84XA Pain due to internal orthopedic prosthetic devices, implants and grafts, initial encounter (principal); E78.00 Pure hypercholesterolemia, unspecified; Z79.899 Other long term (current) drug therapy